=== PATIENT | female | born 1985 | race Hispanic/Latino ===

== ENCOUNTER 2017-09-08 08:57 | Emergency (ER) | payer BC ==
[2017-09-08 10:02] VITALS: BP 122/71
--- NOTE | 2017-09-08 12:10 | Emergency Department Report ---
Chief Complaint: Dizziness Stated Complaint: FLU LIKE SYMPTOMS/DIZZINESS/SOB - HPI History of Present Illness: 32-year-old female without significant past medical history presents with generalized malaise, fever cough runny nose. She has 2 sick children at home with similar symptoms. She had palpitations. She felt briefly disoriented. - Exam Vital Signs: Vital Signs 09/08/17 09:58 Temperature 97.8 F Pulse Rate 82 Respiratory 18 Rate Blood Pressure 122/71 O2 Sat by Pulse 98 Oximetry MSE screening note: Focused history and physical exam performed. Due to findings the following was ordered: ED Disposition for MSE Condition: Stable Referrals: PRIMARY CARE, [Primary Care Provider] - 3-5 Days
--- NOTE | 2017-09-08 12:39 | Emergency Department Report ---
HPI - General Chief Complaint: Dizziness - HPI HPI: The patient is a 32-year-old female presents for evaluation of cough and dizziness. The patient reports 2 days of a nonproductive cough, harsh in quality, severe, associated with severe lightheadedness for the past 1 day, exacerbated with standing or position changes, improved with supine positioning at rest. She also has experienced mild generalized aches and tiredness. She shares that she has 2 small children at home that have both been diagnosed with the flu earlier this week. She believes that she may have the flu as well. The patient denies fever, headache, dyspnea, chest pain, syncope, hemoptysis, paresthesias, focal motor weakness, blurry vision, ear pain, tinnitus, abdominal pain, confusion or altered mental status, or recent URI or diarrhea. ED Past Medical Hx - Past Medical History Previous Medical History?: No - Surgical History Past Surgical History?: No Additional Surgical History: - Social History Smoking Status: Current Every Day Smoker Substance Use Type: None - Medications Home Medications: Home Medications Medication Instructions Recorded Confirmed Last Taken Type traMADol [Ultram 50 MG tab] 1 tab PO PRN PRN 06/05/14 06/17/14 06/16/14 18:00 History Benzonatate [Tessalon Perles] 100 mg PO Q8HR #20 capsule 09/08/17 Unknown Rx Ibuprofen [Motrin] 800 mg PO Q8HR PRN #15 tablet 09/08/17 Unknown Rx Metoclopramide [Reglan] 10 mg PO Q6HR #20 tab 09/08/17 Unknown Rx Oseltamivir [Tamiflu] 75 mg PO BID #10 cap 09/08/17 Unknown Rx ED Review of Systems ROS: Stated complaint: FLU LIKE SYMPTOMS/DIZZINESS/SOB Other details as noted in HPI Constitutional: reports dizziness denies: fever ENT: denies: throat or neck pain Respiratory: reports cough denies: shortness of breath Cardiovascular: reports: chest pain Endocrine: denies unexplained weight loss or gain Gastrointestinal: denies: abdominal pain, nausea Genitourinary: denies: dysuria Musculoskeletal: denies: leg swelling Skin: denies: rash Neurological: denies: headache Hematological/Lymphatic: denies: easy bleeding or easy bruising Psych: denies sadness or hopelessness Physical Exam - Physical Exam Vital Signs: Vital Signs 09/08/17 09:58 Temperature 97.8 F Pulse Rate 82 Respiratory 18 Rate Blood Pressure 122/71 O2 Sat by Pulse 98 Oximetry Physical Exam: General: well-nourished, well-developed, no acute distress Head: Normocephalic, atraumatic Eyes: normal sclera, PERRL, EOM intact ENT: Mucous membranes are pale and dry, bilateral nasal congestion present Neck: No neck stiffness, no cervical adenopathy Respiratory: Breath sounds equal bilaterally, no wheezing, rales, or rhonchi Cardio: S1 and S2 present, no murmurs, rubs, gallops, capillary refill is delayed Abdomen: Normoactive bowel sounds, soft abdomen, no rigidity, no guarding or rebound tenderness Musc: No pitting edema Skin: No rash Neuro: alert oriented x4, normal cognition, speech normal, no facial drooping, no uvula or tongue deviation on protrusion, no deficit with rotation of neck or shoulder shrug, no obvious gross motor deficit in the upper or lower extremities with flexion or extension at the shoulder, elbow, wrist, hip, knee, or ankle bilaterally, no obvious gross sensation deficit to crude touch or 2 pt discrimination, 2+ symmetric reflexes on DTR testing, no coordination deficit with [id number] or [id number] testing, romberg negative, patient able to to ambulate without abnormal gait Psych: Normal affect ED Course Vital Signs 09/08/17 09:58 Temperature 97.8 F Pulse Rate 82 Respiratory 18 Rate Blood Pressure 122/71 O2 Sat by Pulse 98 Oximetry ED Medical Decision Making - Medical Decision Making The patient was seen and examined by myself. On initial evaluation, the patient was found to be in no distress. Evaluation findings are consistent with orthostatic lightheadedness secondary to dehydration. 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 As the patient has close contact exposure to the flu and has symptoms consistent with the flu, the patient will be prescribed Tamiflu. She was also given prescriptions for cough medicine, pain medicine, and nausea medicine. The patient is discharged in stable condition. Critical care attestation.: If time is entered above; I have spent that time in minutes in the direct care of this critically ill patient, excluding procedure time. ED Disposition Clinical Impression: Influenza, Dehydration, Orthostatic dizziness Disposition: DC-01 TO HOME OR SELFCARE Is pt being admited?: No Does the pt Need Aspirin: No Condition: Stable Instructions: Dehydration (ED), Influenza (ED), Lightheadedness (ED) Prescriptions: Benzonatate [Tessalon Perles] 100 mg PO Q8HR #20 capsule Ibuprofen [Motrin] 800 mg PO Q8HR PRN #15 tablet PRN Reason: Pain Metoclopramide [Reglan] 10 mg PO Q6HR #20 tab Oseltamivir [Tamiflu] 75 mg PO BID #10 cap Referrals: PRIMARY CARE, [Primary Care Provider] - 3-5 Days [facility] [Provider Group] - 3-5 Days Forms: Work/School Release Form(ED) Time of Disposition: 12:35
== END 2017-09-08 13:00 | disposition home or self-care (01) ==
LOC: ED 08:57
DX: J11.1 Influenza due to unidentified influenza virus with other respiratory manifestations (principal); E86.0 Dehydration; R42 Dizziness and giddiness; F17.200 Nicotine dependence, unspecified, uncomplicated
CPT/HCPCS: 99282